=== PATIENT | male | born 1965 | race African-American/Black ===

== ENCOUNTER 2021-10-30 01:20 | Emergency (ER) | payer MEDICAID ==
[~2021-10-30] VITALS: Ht 188 cm; Wt 109.0 kg
[2021-10-30] MEDS ORDERED: TETANUS, DIPHTHERIA, PERTUSSIS VAC/PF 0.5ML (>10YR OLD) IM ONE (02:00)
[2021-10-30] MEDS ORDERED: LIDOCAINE HCL/PF 1% 10 MG/ML 5ML VIAL INFIL ONE (02:00)
[2021-10-30] MEDS ORDERED: BACITRACIN ZINC OINT UDPKT TOP ONE (02:00)
[2021-10-30] MEDS ORDERED: LIDOCAINE HCL 1% 10 MG/ML 10ML VIAL INJ NR (02:30)
[2021-10-30] MEDS ORDERED: CEPH500T MT (03:05)
[2021-10-30] MEDS ORDERED: TOPUD MT (03:05)
[2021-10-30] MEDS ORDERED: MUPI1OIN4 TP (03:05)
[2021-10-30] MEDS ORDERED: ACETAMINOPHEN 325MG TABLET PO ONE (04:45)
[2021-10-30 05:52] VITALS: BP 145/76
== END 2021-10-30 06:04 | disposition home or self-care (01) ==
LOC: ER 01:20
DX: S61.411A Laceration without foreign body of right hand, initial encounter (principal); W26.8XXA Contact with other sharp object(s), not elsewhere classified, initial encounter; Y93.89 Activity, other specified; Y92.018 Other place in single-family (private) house as the place of occurrence of the external cause
CPT/HCPCS: 12002; 73130; 90471; 90715; 99283; A4217; J3490; Z7610

== ENCOUNTER 2021-11-03 11:04 | Emergency (ER) | payer MEDICAID ==
[~2021-11-03] VITALS: Ht 185.4 cm; Wt 106.0 kg
[~2021-11-03 11:04] MED LIST: CEPH500T MT; MUPI1OIN4 TP; TOPUD MT
[2021-11-03 11:47] VITALS: BP 145/69
== END 2021-11-03 11:48 | disposition home or self-care (01) ==
LOC: ER 11:04
DX: Z48.00 Encounter for change or removal of nonsurgical wound dressing (principal)
CPT/HCPCS: 99281

== ENCOUNTER 2021-11-09 09:35 | Emergency (ER) | payer MEDICAID ==
[~2021-11-09] VITALS: Ht 185.4 cm; Wt 104.0 kg
[2021-11-09] MEDS ORDERED: CEPH500T MT (09:53)
[2021-11-09 10:32] VITALS: BP 127/85
== END 2021-11-09 10:33 | disposition home or self-care (01) ==
LOC: ER 09:35
DX: S61.411D Laceration without foreign body of right hand, subsequent encounter (principal); X58.XXXD Exposure to other specified factors, subsequent encounter
CPT/HCPCS: 99283

== ENCOUNTER 2021-11-17 11:14 | Emergency (ER) | payer MEDICAID ==
[~2021-11-17] VITALS: Ht 185.4 cm; Wt 104.0 kg
[2021-11-17 11:24] VITALS: BP 134/89
== END 2021-11-17 11:41 | disposition home or self-care (01) ==
LOC: ER 11:14
DX: Z48.02 Encounter for removal of sutures (principal)
CPT/HCPCS: 99281; Z7610

== ENCOUNTER 2021-11-25 09:39 | Emergency (ER) | payer MEDICAID ==
[~2021-11-25] VITALS: Ht 165.1 cm; Wt 75.0 kg
[2021-11-25 10:03] VITALS: BP 150/91
== END 2021-11-25 11:37 | disposition home or self-care (01) ==
LOC: ER 09:39
DX: Z48.02 Encounter for removal of sutures (principal)
CPT/HCPCS: 99281; Z7610